=== PATIENT | male | born 1960 | race Caucasian/White ===

== ENCOUNTER 2017-01-18 15:32 | Observation (INO) | payer OTHER ==
[2017-01-18] VITALS (12 sets, daily range): BP systolic 109–176; BP diastolic 57–90; PULSE 79–100; RESP 14–20; O2SAT 94–100
[~2017-01-18] VITALS: Ht 167.6 cm; Wt 84.8 kg
[~2017-01-18 15:32] MED LIST: Dexamethasone 4 mg/mL Inj ONE; HYDROmorphone 1 mg/mL Inj ONE; LOVA20TA7; MetoCLOpramide 5 mg/mL 2 mL Inj ONE; Ondansetron 2 mg/mL 2 mL Inj ONE; Propofol 10,000 mCg/mL 20 mL Inj ONE; Succinylcholine Chloride 20 mg/mL 5 mL Inj ONE; ZES20T PO; fentaNYL-PF 50 mCg/mL 2 mL Inj ONE
--- NOTE | 2017-01-18 16:50 | ED.REPORT ---
HPI-General Illness Date of Service Jan 18, 2017 ED Provider: Keara Hastings MD The pt is a 56 y/o male w/ a hx of a vasectomy presenting to the ED complaining of an abscess underneath the L testicle. His symptoms began 9 days ago. He is also experiencing diarrhea. The pt was sent to the ED by Dr. Elizondo for a peritoneal abscess due to increasing pain and the development of a fever. The pt has been on Cipro for a week but has not improved. They also had a CT taken at 1330 today. Nursing Notes Stated Complaint: ABDOMINAL/GROIN PAIN Chief Complaint: L groin pain Nursing Notes Reviewed: Yes Allergies: Coded Allergies: No Known Allergies (Unverified Allergy, Unknown, 01/18/17) Scheduled Lisinopril-Expunged Drug, Do Not Renew! (Lisinopril-Expunged Drug, Do Not Renew! ) 20 Mg Tablet 20 MG PO DAILY Miscellaneous Medications Lovastatin-Expunged Drug, Do Not Renew! (Mevacor-Expunged Drug, Do Not Renew!) 20 Mg Tablet Lovastatin 20 MG -> Simvastatin 10 MG Mevacor 20 MG -> Simvastatin 10 MG General Time Seen by MD: 16:47 Chief Complaint Other (L groin pain ) Hx Obtained From: Patient Arrived By: Walk-in Sudden in Onset?: Yes Onset Occurred: More than a week ago... (9 days ) Symptom Duration: Since onset Recent Healthcare: No recent hospitalization, Recent doctor visit Similar Sx Previous: No Past Medical History Past Medical History None reported Past Surgical History Vasectomy Social History Other Social History: Good social support, Ambulatory Status Independent Review of Systems Pain under L testicle Full Review of Systems Constitutional: Reports: Fever GI: Reports: Diarrhea Complete sys rev & neg: except as marked. Physical Exam Vital Signs Vital Signs Date Time Temp Pulse Resp B/P Pulse Ox O2 Delivery O2 Flow Rate FiO2 01/18/17 18:26 94 18 145/78 96 Room Air 01/18/17 16:43 38.2 01/18/17 15:35 37.4 100 18 176/90 100 Room Air Initial VS: Reviewed General/Constitutional: Well-developed, Well-nourished Head / Eyes: Atraumatic, Normocephalic, PERRL ENT: Mucous membranes moist, Conjunctiva normal, No scleral icterus Neck: Supple, Non-tender, Full range of motion Respiratory: Breath sounds normal, Clear to auscultation, No respiratory distress Cardiovascular: Regular rate & rhythm, Heart sounds normal, Intact distal pulses Extremities: Vascular intact, Neuro intact, No swelling, No tenderness Skin: Warm, Dry, No cyanosis Neurologic: Alert, Oriented, Nonfocal Psychiatric: Mood/affect normal, Behavior normal, Normal thought content Male Genitourinary: Penis NL Palpable firmness of L side of scrotum into perineal body w/o fluctuance or radiance Interpretation & Diagnostics Lab Results Interpretation Result Diagram: 01/18/17 1730 01/18/17 1730 Test 01/18/17 17:30 01/18/17 17:46 White Blood Count 13.6th/mm3 (3.8-10.1) Red Blood Count 4.52mil/mm3 (4.40-5.80) Hemoglobin 13.2g/dL (13.8-17.2) Hematocrit 39.2% (41.0-50.0) Mean Corpuscular Volume 86.7fL (81-100) Mean Corpuscular Hemoglobin 29.2pg (27.0-35.0) Mean Corpuscular Hemoglobin Concent 33.7% (32.0-37.0) Red Cell Distribution Width 13.1% (12.3-15.4) Platelet Count 237bil/L (150-400) Neutrophils (%) (Auto) 79.5% (40-74) Lymphocytes (%) (Auto) 5.4% (14-46) Monocytes (%) (Auto) 11.5% (4-12) Eosinophils (%) (Auto) 1.2% (0-5) Basophils (%) (Auto) 0.3% (0-3) Band Neutrophils % % (1-5) Metamyelocytes % % (0-0) Sodium Level 139mEq/L (134-144) Potassium Level 4.4mEq/L (3.5-5.2) Chloride Level 99mEq/L (97-108) Carbon Dioxide Level 23mmol/L (18-29) Blood Urea Nitrogen 21mg/dL (6-24) Creatinine 1.19mg/dL (0.76-1.27) Estimat Glomerular Filtration Rate 68mL/min (>59) Glucose Level 105mg/dL (60-99) Lactic Acid Level 1.1mmol/L (0.4-2.0) Calcium Level 9.2mg/dL (8.5-10.1) Total Bilirubin 0.9mg/dL (0.0-1.2) Aspartate Amino Transf (AST/SGOT) 40U/L (0-50) Alanine Aminotransferase (ALT/SGPT) 82U/L (0-44) Alkaline Phosphatase 281U/L (25-150) Total Protein 7.3g/dL (6.4-8.4) Albumin 3.7g/dL (3.4-5.0) Hold Urine Received (Received) CT Abd / Pelvis Interpretation IMPRESSION: 1. Multiocular perineal abscess, left of midline, also involving the corpora structure at the base of the penis. 2. Cholelithiasis 3. Small bilateral hydrocele Findings discussed w/ Pio, at the [facility] clinic at 2:39 PM 01/18/17. Study type: Abdom CT oral contrast Interpretation / Wet Read by: Interpret - Radiologist Re-Eval/Medical Decision Med Decision/Clinical Course 56-year-old woman presents with a perineal abscess noted on CT scan today. Pain present for about a week. Has been on by mouth Cipro with no change to symptoms. Elevated white count. No evidence of sepsis or Radha's gangrene at this time Will be admitted with trip to the OR for drainage of the abscess Source of Hx: Old records Consultation #1: Referral / Consult Name: Marlys Almanzar MD Consulted With: Surgeon Call Returned at: 17:45 [employer] Supervisor: Will see patient Consultation #2: Consulted With: Surgeon Call Returned at: 18:32 Note: Dr Almanzar will be the admitting provider. Anticipate OR this eveneing Counseled Regarding: Diagnosis, Lab results, Need for admission Discharge & Departure Primary Impression: Perineal abscess Disposition: ADMITTED TO HOSPITAL Discharge Condition All VS Reviewed: Yes Condition: Stable Referrals: Sanjay Elizondo MD (PCP) Scribe Attestation Portions of this note were transcribed by Damon Fajardo. I, Dr. Hastings personally performed the history, physical exam and medical decision-making; I reviewed and confirmed the accuracy of the information in the transcribed note. copies to: Sanjay Elizondo MD, Shawna L MD Jan 18, 2017 16:50 Damon Fajardo Jan 18, 2017 17:31
[2017-01-18] MEDS ORDERED: LORazepam 2 mg Tablet PO ONE (17:00)
[2017-01-18] MEDS ORDERED: Ondansetron 2 mg/mL 2 mL Inj IVPUSH ONE (17:00)
[2017-01-18] MEDS ORDERED: 0.9% Sodium Chloride 1,000 ML IV ONE ×2 (17:00→21:40)
[2017-01-18] MEDS ORDERED: Thiamine Inj 100 MG, Folic Acid Inj 1 MG, Magnesium Sulfate 50% Inj 2 GM, Multivitamins... IV ONE ×5 (17:00)
[2017-01-18] MEDS ORDERED: Piperacillin-Tazo 3.375 Gm Inj 3.375 GM in Dextrose 5% Minibag Plus 50 ML IV ONE (17:00)
[2017-01-18 18:06] LABS: Mean Corpuscular Hemoglobin 29.2 pg (27.0-35.0); Mean Corpuscular Volume 86.7 fL (81-100); Platelet Count 237 bil/L (150-400)
[2017-01-18 18:13] LABS: BASOPHILS % (AUTO) 0.3 % (0-3); EOSINOPHILS % (AUTO) 1.2 % (0-5); MONOCYTES % (AUTO) 11.5 % (4-12); NEUTROPHILS % (AUTO) 79.5 % (40-74)
--- NOTE | 2017-01-18 18:41 | HP ---
[address] [address] HISTORY AND PHYSICAL PATIENT: TUTU MEDINA : 1960 MR#: [id number] ADMIT: 01/18/2017 JOB ID: [id number] CHIEF COMPLAINT: A 56-year-old gentleman with perineal abscess seen in consultation at the request of Keara Hastings MD. HISTORY OF PRESENT ILLNESS: The patient is a 56-year-old gentleman who noticed some pain in his perineum starting about nine days ago which has progressively gotten worse. Over the last couple of days he has also started having fevers, prompting him to go to [facility] Emergency Department. He has not noticed any changes suggestive of a urinary tract infection or burning or other symptoms while urination. He was seen in the [facility] Emergency Department, had blood work and CT abdomen and pelvis, and he was transferred to [facility] saying he would need urologic evaluation. Dr. Hastings saw the CT and saw the patient and asked me to see him in consultation. OTHER MEDICAL PROBLEMS: 1. Hypertension. 2. Obesity. PRIOR OPERATIONS: 1. Vasectomy. REVIEW OF SYSTEMS: Twelve point review of systems negative other than the pertinent positives noted in the history of present illness and other medical problems. SOCIAL HISTORY: No smoking. 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 He is here with his . FAMILY HISTORY: No family history of cancer or diabetes. INVESTIGATIONS: Labs from January 18, 2017, showed white blood cell count of 15.0 with hemoglobin of 12.9, with platelet count of 208. Glucose of 161, creatinine of 1.37. CT abdomen and pelvis with contrast showed a 7 x 1.8 x 2.5 cm multiloculated abscess in the perineum, left of the midline. The abscess extended superiorly to involve the base of the penis, involving the corpus spongiosum and the left corpus cavernosum. He was also noted to have gallstones and small bilateral hydroceles. PHYSICAL EXAMINATION: A 56-year-old gentleman in mild distress. BMI 30.4. Temperature 38.2, pulse 100, respiratory rate 18, blood pressure 176/90, saturating 100% on room air. Eyes: Normal pupils, conjunctivae. Ears, nose, and throat: Normal external appearance. Neck: No lymphadenopathy. Respiratory: Normal effort, clear to auscultation. Cardiovascular: Regular rate and rhythm. Gastrointestinal: Abdomen is soft. Skin: Perineal skin remarkably appears normal, but tender swelling at the base of the scrotum extending down into the perineum left of the midline. Neurologic: No gross deficits. Psych: Alert, appropriate. ASSESSMENT AND PLAN: Perineal abscess. This is potentially involving the both base of the scrotum. I discussed the case with Dr. Casillas and recommended incision and drainage in the operating room. We will place a Mckinnon catheter before the operation to make sure we are protecting the urethra. After discussing the risks, benefits, and alternatives, the patient wished to proceed. We will continue the Zosyn and start him on insulin and check a hemoglobin A1c to look for undiagnosed diabetes. ANDREAS
[2017-01-18] MEDS ORDERED: Dextrose 10% 250 ML IV PRN (19:25)
[2017-01-18] MEDS ORDERED: Acetaminophen IV 1,000 MG in IV Premix 1 EACH IV ONE (19:40)
--- NOTE | 2017-01-18 20:25 | PCM.HPANE ---
Patient Data Date of Service: Jan 18, 2017 Surgeon Admitting Provider:Marlys Almanzar MD Attending Provider:Marlys Almanzar MD Primary Care Physician:Sanjay Elizondo MD Other Provider: Reason for Visit Perineal Abscess Ht/WT & BMI Height (Feet): 5 Height (Inches): 6 Weight (Kilograms): 85.45 Body Mass Index Allergies Coded Allergies: No Known Allergies (Unverified Allergy, Unknown, 01/18/17) Past Anesthesia History Anesthesia History: Denies:: Abnormal Airway, Anesthesia Reactions, Difficult Intubation, Fam Anesthesia Reaction, Fam Malignant Hypertherm, Malignant Hyperthermia Diabetes History Hx Diabetes?: No Current Bedside Blood Glucose: 103 MRSA MRSA: No Medications Hypertension Medication: Yes Home Meds Incl Beta Maikel: No Reported Medications Lisinopril-Expunged Drug, Do Not Renew! 20 Mg [id number] Mg PO DAILY #30 TAB 11/10/12 Lovastatin-Expunged Drug, Do Not Renew! (Mevacor-Expunged Drug, Do Not Renew!) 20 Mg Tablet Lovastatin 20 MG -> Simvastatin 10 MG Mevacor 20 MG -> Simvastatin 10 MG 11/10/12 History History of ENT Problems?: No HEENT History: Denies:: Abnormal Airway Difficult Intubation Dysphagia Denture Type: None Teeth Condition: Within Normal Limits Hx of Heart Problems?: No Cardiovascular History: Positive for:: Hypertension Denies:: AICD Atrial Fibrillation Chest Pain Congestive Heart Failure Pacemaker Valvular Heart Disease Hx of Respiratory Problem?: No Respiratory History: Denies:: Asthma COPD Cough Hemoptysis Pneumonia Tuberculosis Hx Neurologic Problems?: No Neurological History: Denies:: CVA Seizures TIA Hx of GI Problems?: No Gastrointestinal History: Denies:: Gastroesphageal Reflux Hx of Problems?: Yes HX of Peritoneal Dialysis: No Other Pertinent History: perineal abscess extending to base of corpora of penis Skin History: Denies:: History Skin Disorders? Pressure Ulcers Other Skin Pertinent History: perineal abscess extending to base of corpora penis Hx Musculoskeletal Problems?: No Musculoskeletal History: Denies:: Joint Replacement Psycho Social History: Denies:: Anxiety Hx Depression Hx Surgeries?: Yes (vasectomy) Hx Any Other Health Problems?: No History Blood Transfusions: Positive for:: Accept Blood Products? Hx Diabetes: NoBedside Blood Glucose: 103 Hx Alcohol Use: YesHx Substance Use: No Smoking Status: Never Smoker Have You Smoked inLast 12 mo: No Stop/Bang Treated for Sleep Apnea?: No Do You Have a CPAP Machine?: No S-Snoring: Do You Snore Loudly: No T-Tired: feel tired, fatigued: No O-Obsered: Observed not breath: No P-Blood Pressure: treated: Yes B- Body Mass Index > 35 kg/m2: No A- Age over 50: Yes N- Neck Large Circumference: Yes G- Gender Male: Yes PEEWEE Risk Assessment: High Risk, =/>3 Yes PEEWEE Category 2: Yes Risk Assessment Category Category 1A: Patient has history of documented sleep apnea, and HAS NOT received any narcotic, sedative or anesthesia administration during this stay. Category 1B: Patient has history of documented sleep apnea, and HAS received any narcotic , sedative or anesthesia administration during this stay Category 2: Patient has SUSPECTED Obstructive Sleep Apnea, and HAS received any narcotic , sedative or anesthesia administration during this stay. Category 3: Patient has SUSPECTED Obstructive Sleep Apnea and HAS NOT received narcotic, sedative or anesthesia administration during this stay. Category 4: Outpatient in Procedural Areas with known sleep apnea or who screen positive for High Risk via the STOP/BANG questionnaire. Exam Exam Vital Signs Vital Signs Date Time Temp Pulse Resp B/P Pulse Ox O2 Delivery O2 Flow Rate FiO2 01/18/17 18:52 38.8 91 20 143/74 98 Room Air 01/18/17 18:26 94 18 145/78 96 Room Air 01/18/17 16:43 38.2 01/18/17 15:35 37.4 100 18 176/90 100 Room Air General Appearance: Alert, Oriented X3, Cooperative, No Acute Distress HEENT/AIRWAY: MP 2, Neck Movement (from), Mouth Opening (>3), Other (tmd>3) Lungs: Normal Air Movement Heart: Exam Unremarkable, Regular Rate/Rhythm, Normal S1, Normal S2, No Murmurs /Rubs/Gallops Meds/Labs/Diagnostics Admission Meds Current Medications Piperacillin Sod/ Tazobactam Sod 3.375 gm/Dextrose/ Water 50 ml @ 100 mls/hr ONCE ONCE IV Last administered on 01/18/17t 18:49; Start 01/18/17 at 17:00; Stop 01/18/17 at 17:29; Status DC Sodium Chloride 1,000 ml @ 0 mls/hr Q0M ONCE IV Last administered on 01/18/17 17:38; Start 01/18/17 at 17:00; Stop 01/18/17 at 17:03; Status DC Acetaminophen/ Premix (Tylenol IV/IV Premix) 100 ml @ 400 mls/hr ONCE ONCE IV Last administered on 01/18/17 19:58; Start 01/18/17 at 19:40; Stop 01/18/17 at 19:59; Status DC Bedside Blood Glucose: 103 Labs Test 01/18/17 17:30 01/18/17 17:46 White Blood Count 13.6th/mm3 (3.8-10.1) Red Blood Count 4.52mil/mm3 (4.40-5.80) Hemoglobin 13.2g/dL (13.8-17.2) Hematocrit 39.2% (41.0-50.0) Mean Corpuscular Volume 86.7fL (81-100) Mean Corpuscular Hemoglobin 29.2pg (27.0-35.0) Mean Corpuscular Hemoglobin Concent 33.7% (32.0-37.0) Red Cell Distribution Width 13.1% (12.3-15.4) Platelet Count 237bil/L (150-400) Neutrophils (%) (Auto) 79.5% (40-74) Lymphocytes (%) (Auto) 5.4% (14-46) Monocytes (%) (Auto) 11.5% (4-12) Eosinophils (%) (Auto) 1.2% (0-5) Basophils (%) (Auto) 0.3% (0-3) Band Neutrophils % % (1-5) Metamyelocytes % % (0-0) Sodium Level 139mEq/L (134-144) Potassium Level 4.4mEq/L (3.5-5.2) Chloride Level 99mEq/L (97-108) Carbon Dioxide Level 23mmol/L (18-29) Blood Urea Nitrogen 21mg/dL (6-24) Creatinine 1.19mg/dL (0.76-1.27) Estimat Glomerular Filtration Rate 68mL/min (>59) Glucose Level 105mg/dL (60-99) Lactic Acid Level 1.1mmol/L (0.4-2.0) Calcium Level 9.2mg/dL (8.5-10.1) Total Bilirubin 0.9mg/dL (0.0-1.2) Aspartate Amino Transf (AST/SGOT) 40U/L (0-50) Alanine Aminotransferase (ALT/SGPT) 82U/L (0-44) Alkaline Phosphatase 281U/L (25-150) Total Protein 7.3g/dL (6.4-8.4) Albumin 3.7g/dL (3.4-5.0) Hold Urine Received (Received) Plan Impression Patient chart reviewed, patient interviewed and anesthestic plan with risks, benefits, and alternatives discussed, and informed consent obtained. NPO per Anesth. Guidelines: Yes ASA Physical Status: ASA2 Plus Emergency Anesthetic Plan: GA Bene/Risks/Altern/Consents: Yes HP Complete Prior to Induction: Yes Odell Diaz MD Jan 18, 2017 20:25
[2017-01-18] MEDS ORDERED: Lactated Ringer's 1,000 ML IV ONE (20:30)
[2017-01-18] MEDS ORDERED: Bupivacaine-MPF 0.5% 30 mL Inj INFILTRATE ONE (21:07)
[2017-01-18] MEDS ORDERED: Dextrose 5% Lactated Ringer's 1,000 ML IV SCH (21:36)
--- NOTE | 2017-01-18 21:36 | PCM.SURGPO ---
Immediate Operative Note Date of Surgery: Jan 18, 2017 Pre Operative Diagnosis Perineal Abscess Post Operative Diagnosis Perirectal Abscess with Fistula in Ano Procedure Rectal Examination under anesthesia, Incision & drainage of Perirectal Abscess, Seton placement Surgeon and Literature Teacher Surgeon: Marlys Almanzar MD Assistants: None Findings Internal opening in the left anterior rectum with purulent drainage Complications There were no periprocedural complications identified. Surgical Specimen Removed: Yes Specimen sent to Pathology: No Surgical Specimen description: Pus Anesthetic Administered: GA Grafts, Implants: None Output, Estimated Blood Loss: 0 Blood Admin during surgery: No Marlys Almanzar MD Jan 18, 2017 21:36
[2017-01-18] MEDS ORDERED: HYDROmorphone 1 mg/mL Inj IVPUSH PRN ×2 (21:40→22:00)
[2017-01-18] MEDS ORDERED: Ondansetron 2 mg/mL 2 mL Inj IVPUSH PRN ×2 (21:40→22:00)
[2017-01-18] MEDS ORDERED: MetoCLOpramide 5 mg/mL 2 mL Inj IVPUSH PRN ×2 (21:40→22:00)
[2017-01-18] MEDS ORDERED: Lactated Ringer's 500 ML IV PRN (21:57)
[2017-01-18] MEDS ORDERED: Lactated Ringer's 1,000 ML IV SCH (21:57)
[2017-01-18] MEDS ORDERED: Dexamethasone 4 mg/mL Inj IVPUSH PRN (22:00)
[2017-01-18] MEDS ORDERED: fentaNYL-PF 50 mCg/mL 2 mL Inj IVPUSH PRN (22:00)
[2017-01-18] MEDS ORDERED: Phenylephrine 10,000 mCg/mL Inj IVPUSH PRN (22:00)
[2017-01-18] MEDS ORDERED: EPHEDrine Sulfate 50 mg/mL Inj IVPUSH PRN (22:00)
[2017-01-19 01:02] VITALS: BP 106/64; PULSE 71; RESP 16; O2SAT 95
[2017-01-19] MEDS: Insulin Human REGular 300 Unit/3 mL Inj SUBQ SCH ×3 (03:46→14:30)
--- NOTE | 2017-01-19 04:16 | NUR ---
Admission Pt arrived to [facility] rm 1008 from PACU at 2200. Able to transfer with SBA from [facility] to bed. Pt a/o x4, groggy. Wakens spontaneously to voice. IV to right AC SL, IV fluids started per orders, Pt oriented to room, call light/TV controls. at bedside. Pt is CPR. General diet. Rates pain 0/10 at this assessment. ABD pad CDI to geovani area, stocking net panties in place. Pt has dobbs catheter in place, patent draining clear bienvenido urine to gravity. Tolerating PO fluids at this time. Care continues
[2017-01-19 05:35] VITALS: BP 107/67; PULSE 64; RESP 17; O2SAT 98
[2017-01-19 05:43] LABS: BASOPHILS % (AUTO) 0.1 % (0-3); EOSINOPHILS % (AUTO) 0.1 % (0-5); MONOCYTES % (AUTO) 4.8 % (4-12); Mean Corpuscular Volume 88.9 fL (81-100); NEUTROPHILS % (AUTO) 87.7 % (40-74); Platelet Count 253 bil/L (150-400)
--- NOTE | 2017-01-19 06:28 | OP ---
[address] [address] OPERATIVE REPORT PATIENT: TUTU MEDINA : 1960 MR#: [id number] ADMIT: 01/18/2017 JOB ID: [id number] DATE OF SURGERY: 01/18/2017 PREOPERATIVE DIAGNOSIS(ES): Perineal abscess. 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 PROCEDURE PERFORMED: 1. Rectal examination under anesthesia. 2. Drainage of perirectal abscess with seton placement. SURGEON: Marlys Almanzar MD. NEONATAL ICU COORDINATOR: None. COMPLICATIONS: None. INDICATIONS: The patient is a 56-year-old gentleman who noticed some pain in his perineum starting about nine days ago which has progressively gotten worse. Over the last couple of days he also started having fevers prompting him to go to [facility] Emergency Department. He did not have any urinary tract symptoms. He had blood work and CT done and he was transferred to [facility] for urologic evaluation. On the CT he had a 7 x 1.8 x 2.5 cm multilocular abscess in the perineum left of the midline, extending superiorly to involve the base of the penis, involving the corpus spongiosum and the left corpus cavernosum. His scan did not go all the way down to the skin level. After discussing the risks, benefits and alternatives, and talking to Dr. Casillas, we brought him back to the operating room for exam under anesthesia with drainage. PROCEDURE DETAILS: He was placed in supine position. Underwent smooth induction of general anesthesia, had a Mckinnon catheter placed and the perineum was prepped and draped in the usual sterile fashion. At this time we noticed a copious amount of purulent drainage coming from the anus. At that point I took a surgical time-out and entered the anus with a speculum and immediately visualized an internal opening in the left anterior location that is at 1 o'clock in lithotomy position with purulent drainage. I used a probe to identify this obvious fistula and was able to find the abscess cavity with the probe and then created an external opening in the left anterior location over the probe and opened this with a knife cautery and a clamp to enter into the vein abscess cavity anterior to the rectum. The cavity did appear to be tracking anteriorly towards the scrotum, but I did not make an counter incision because it did not appear to be close to the skin. So after draining out all the pus that I could and sending it for culture, I irrigated this space with saline and then placed the probe with a silk and then with a vessel loop as a seton. I placed an additional quarter-inch Pisek drain, tracking anteriorly along the abscess to drain this anterior space and secured it with 3-0 nylon. At this point, I infiltrated the site widely with 0.5% bupivacaine and placed a dressing and terminated the procedure.
[2017-01-19] MEDS ORDERED: Piperacillin-Tazo 3.375 Gm Inj 3.375 GM in Dextrose 5% Minibag Plus 50 ML IV SCH (07:30)
[2017-01-19 07:59] VITALS: BP 113/69; PULSE 64; RESP 16; O2SAT 96
[2017-01-19] MEDS ORDERED: Polyethylene Glycol (PEG) 17 Gm Powder PO SCH (08:30)
[2017-01-19] MEDS ORDERED: HYDROcodone-APAP 5-325 mg Tablet PO PRN (08:30)
[2017-01-19] MEDS ORDERED: HYDR-4003 PO (08:32)
[2017-01-19] MEDS ORDERED: POLY17PO6 PO (08:32)
[2017-01-19] MEDS ORDERED: AMOX-354 PO (08:32)
--- NOTE | 2017-01-19 09:13 | PROG NOTE ---
[address] [address] PROGRESS NOTE PATIENT: TUTU MEDINA : 1960 MR#: [id number] ADMIT: 01/18/2017 JOB ID: [id number] DATE: 01/19/2017 SUBJECTIVE: The patient is seen in followup. He has felt really good overnight with absolutely no pain. He has no nausea. His only complaint is discomfort from the Mckinnon catheter. OBJECTIVE: Temperature 37.0, pulse 64, blood pressure 113/69, saturation 96% on room air. In general, he is resting in bed in no acute distress. Chest is clear. Heart: Regular rate and rhythm. No murmurs. Abdomen is soft, nondistended. : His perineum is soft with minimal induration, nontender, no erythema. Rectal: Garth drain and seton are intact with minimal amounts of drainage overnight. LABORATORIES: White count is 13.8, hematocrit 36.2, platelets 253. Creatinine 1.09, glucose 247. ASSESSMENT/PLAN: A 56-year-old man postoperative day one, status post drainage of perirectal abscess with a fistula, with both Garth drain and seton placement. He is doing well clinically. I do not recommend a repeat CT scan today because of the fact that he is doing well and has absolutely no pain. The plan will simply be to remove his Mckinnon catheter. If he is able to retain urinate okay, then I think he can go home today on oral pain medications, oral antibiotics for 10 days and stool softeners. Sitz baths were recommended and he will follow up in surgery clinic on Saturday or .
[2017-01-19] MEDS ORDERED: 0.9% Sodium Chloride 250 ML ONE (10:03)
--- NOTE | 2017-01-19 10:45 | PCM.DISURG ---
Surgical Discharge Instruction Date of Service Jan 19, 2017 Dates of Hospitalization Date of Hospital Admission Jan 18, 2017 at 18:59 Providers Admitting Physician: Marlys Almanzar MD Primary Care Physician: Sanjay Elizondo MD Attending Physician: Marlys Almanzar MD Discharge Diagnosis Post Operative diagnosis Perirectal Abscess with Fistula in Ano Diet Discharge Diet: Diabetic Activity Discharge Activity-General: No restrictions Dressing and Incisional Care Dressing Care: Change soiled dressing Dressing Instructions: Sitz baths twice daily Hygiene: May shower Follow Up Plan Follow Up Plan in Surgery clinic on Saturday or . Call on Saturday to get an appointment. Call your provider for: Fever (over 101.5F), Vomiting Santos Smith MD Jan 19, 2017 10:45
--- NOTE | 2017-01-19 10:46 | PCM.DISURG ---
Surgical Discharge Instruction Date of Service Jan 19, 2017 Dates of Hospitalization Date of Hospital Admission Jan 18, 2017 at 18:59 Providers Admitting Physician: Marlys Almanzar MD Primary Care Physician: Sanjay Elizondo MD Attending Physician: Marlys Almanzar MD Discharge Diagnosis Post Operative diagnosis Perirectal Abscess with Fistula in Ano Diet Discharge Diet: No restrictions Activity Discharge Activity-General: No restrictions Follow Up Plan Follow Up Plan in Surgery clinic on Saturday or . Call on Saturday to get an appointment. Call your provider for: Fever (over 101.5F), Vomiting Santos Smith MD Jan 19, 2017 10:46
--- NOTE | 2017-01-19 11:08 | NUR ---
Med rec Noted that medication reconciliation had not been done yet. Admit nurse notified and will address.
--- NOTE | 2017-01-19 12:31 | NUR ---
Social Work: Screening/Readiness for Discharge/Multidisciplinary Rounds D: EMR reviewed. Pt is a 56 y/o male admitted for perineal abscess per H&P. Pt's insurance is [employer] and PCP is Sanjay Elizondo MD. Pt's spouse if Demetri Guerrero ([phone]). Pt discussed in multidisciplinary rounds, no SW needs identified, no MD orders received. Pt anticipated to discharge home today via POV. MD did not indicate or acknowledge any discharge planning needs. SW will continue to follow. A: Pt who is independent at baseline P: Pt anticipated to discharge home today via POV. MD did not indicate or acknowledge any discharge planning needs. SW will continue to follow. VICTOR M Kim
[2017-01-19 14:06] VITALS: BP 112/64; PULSE 71; RESP 18; O2SAT 97
--- NOTE | 2017-01-19 15:26 | NUR ---
Discharge To home via private vehicle with at 15:25. Declined wheelchair, steady ambulation to door. Pt and express understanding of all discharge instructions and care notes, including medications, followup and incisional care. Rx given. IV discontinued intact. All belongings sent with pt.
--- NOTE | 2017-01-19 21:29 | PCM.ANEP1 ---
Post Anesthesia PACU Phase 1 Assessment Date of Service: Jan 19, 2017 Vital Signs Vital Signs Date Time Temp Pulse Resp B/P Pulse Ox O2 Delivery O2 Flow Rate FiO2 01/19/17 14:06 36.7 71 18 112/64 97 Room Air Anesthetic Administered: GA Level of Alertness: Awake, talking BUNN's with Equal Strength: Yes Pain: No Pain Scale Score: 2 Nausea or Vomiting: No CV Function & Hydration Stable: Yes Airway Device: none Oxygen Delivery: Simple Mask Lungs: Normal Air Movement Summary 01/19/17 14:06 36.7 71 18 112/64 97 Room Air PACU Phase 2 Assessment Complications: No Follow up Care: N/A Patient Instructions Provided: N/A Odell Diaz MD Jan 19, 2017 21:29
--- NOTE | 2017-01-21 11:57 | PCM.DC.SUR ---
Discharge Summary Date of Service: Jan 21, 2017 Date of Hospital Admission: Jan 18, 2017 at 18:59 Date of Operation(s): 01/18/2017 Date of Discharge: 01/19/2017 Diagnosis at Time of Discharge Primary Diagnoses: 1. Perianal abscess 2. Status post rectal examination under anesthesia with drainage of perirectal abscess and seton placement Other Medical & Surgical History 1. Hypertension. 2. Obesity. 3. Status post vasectomy Problems: Operation Rectal examination under anesthesia with drainage of perirectal abscess and seton placement. Brief History and Physical: The patient is a 56-year-old gentleman who noticed some pain in his perineum starting about 12 days ago which has progressively gotten worse. Over the last several days prior to admission he started having fevers, prompting him to go to [facility] Emergency [facility]. He had not noticed any changes suggestive of a urinary tract infection or burning or other symptoms while urination. He was seen in the [facility] Emergency Department, had blood work and CT abdomen and pelvis, and he was transferred to [facility] saying he would need urologic evaluation. ED Dr. Hastings saw the CT and saw the patient and asked for General Surgery consultation of perianal abscess. Hospital Course: The patient was admitted with a history, presentation, and workup consistent with perianal abscess and underwent the above-mentioned operation without complication. See operative report for details of the procedure. The patient' s postsurgical course was uneventful. There was a return to bowel function. The patient was stable for discharge on postoperative day #1. At the time of discharge the patient was able to void after Mckinnon catheter removal, tolerate a normal diet without nausea or vomiting, with no significant reported pain, ambulating without assistance, with intact Garth & seton placement; without significantly worsening infection, inflammation, and/or hematoma. We discussed and the patient verbalized understanding instructions regarding postoperative care, follow-up, medication use, and when to seek immediate medical attention. The patient was given a prescription for a 10 day course of oral antibiotics. Disposition: Home in stable condition. Follow-up Plan: Follow-up in outpatient general surgery clinic next Saturday or . Amoxicillin/Clav K ER 1000-62.5 mg (Amoxicillin/Clav K ER 1000-62.5 mg) 1 Each Tab.er.12h 1 TABLET PO BID Hydrocodone-Acetaminophen 5-325 mg (Hydrocodone-Acetaminophen 5-325 mg) 1 Each Tablet 1-2 TABLET PO Q6H PRN PRN For Pain Lisinopril-Expunged Drug, Do Not Renew! (Lisinopril-Expunged Drug, Do Not Renew! ) 20 Mg Tablet 20 MG PO DAILY (Reported) Lovastatin-Expunged Drug, Do Not Renew! (Mevacor-Expunged Drug, Do Not Renew!) 20 Mg Tablet (Reported) Lovastatin 20 MG -> Simvastatin 10 MG Mevacor 20 MG -> Simvastatin 10 MG Polyethylene Glycol 3350 (Miralax) 17 Gm Powd.pack 17 GM PO DAILY Discharge Medications: 10 day course of oral Augmentin prescribed. copies to: Sanjay Elizondo MD, Scott PA-C Jan 21, 2017 11:57
== END 2017-01-19 14:25 | disposition home or self-care (01) ==
LOC: SED 15:32 → OSC 18:59
PROVIDERS: ADMIT Student in an Organized Health Care Education/Training Program; ATTEND Student in an Organized Health Care Education/Training Program
DX: K61.2 Anorectal abscess (principal); I10 Essential (primary) hypertension; E66.9 Obesity, unspecified; Z68.30 Body mass index [BMI] 30.0-30.9, adult; Z98.52 Vasectomy status
CPT/HCPCS: 36415; 46050; 80048; 80053; 82948; 83036; 83605; 85025; 87040; 96361; 96365; 96366; 99285; G0378; J0131; J0330; J1100; J1170; J1815; J2250; J2405; J2543; J2765; J3010; J7030; J7050; J7120